=== PATIENT | male | born 1990 | race Two or more races ===

== ENCOUNTER 2023-03-25 09:08 | Emergency (ER) | payer OTHER ==
[~2023-03-25] VITALS: Ht 180.3 cm; Wt 65.4 kg
[2023-03-25 09:14] VITALS: BP 131/80; PULSE 87; RESP 16; TEMP 98.2; O2SAT 97
[2023-03-25] MEDS ORDERED: LIDOCAINE 1% HCL (LOCAL ANESTH.) INJ 20ML MDV IJ ONE (10:00)
[2023-03-25] MEDS ORDERED: CEPH500C PO (10:09)
== END 2023-03-25 10:22 | disposition home or self-care (01) ==
LOC: ER 09:08
DX: S61.216A Laceration without foreign body of right little finger without damage to nail, initial encounter (principal); W26.8XXA Contact with other sharp object(s), not elsewhere classified, initial encounter; Y93.89 Activity, other specified; Y92.89 Other specified places as the place of occurrence of the external cause; Y99.8 Other external cause status
CPT/HCPCS: 12002; 99283; J2001

== ENCOUNTER 2023-04-02 14:43 | Emergency (ER) | payer MEDICAID ==
[~2023-04-02] VITALS: Ht 180.3 cm; Wt 64.0 kg
[~2023-04-02 14:43] MED LIST: CEPH500C PO
[2023-04-02 16:29] VITALS: BP 120/87; PULSE 76; RESP 18; TEMP 98.6; O2SAT 96
[2023-04-02] MEDS ORDERED: CEPH500C PO (16:44)
[2023-04-02] MEDS ORDERED: cefTRIAXone SOD 1,000 MG VL IM ONE (16:45)
== END 2023-04-02 17:04 | disposition home or self-care (01) ==
LOC: ER 14:43
DX: S61.216D Laceration without foreign body of right little finger without damage to nail, subsequent encounter (principal); X58.XXXD Exposure to other specified factors, subsequent encounter
CPT/HCPCS: 96372; 99283; J0696